=== PATIENT | male | born 1960 | race African-American/Black ===

== ENCOUNTER 2018-07-03 15:32 | Inpatient (IN) | payer MEDICAID, OTHER ==
[~2018-07-03] VITALS: Ht 175.3 cm; Wt 101.2 kg
[2018-07-03 17:26] LABS: Basophils # (auto) 0 uL; Basophils % (auto) 0.2 % (0.0-2.0); Eosinophils # (auto) 0 uL; Hematocrit 49.4 % (41.0-53.0); Hemoglobin 16.8 g/dL (13.5-17.5); Lymphocytes # (auto) 1.2 uL; Lymphocytes % (auto) 9.7 % (10.0-50.0); Mean Corpuscular Hemoglobin 29.5 pg (28.0-32.0); Mean Corpuscular Volume 86.7 fL (80.0-100.0); Monocytes # (auto) 0.8 uL; Monocytes % (auto) 6.3 % (0.0-12.0); Neutrophils # (auto) 10.4 uL; Neutrophils % (auto) 83.8 % (37.0-80.0); Nucleated Red Blood Cells % 0.1 %; Platelet Count (auto) 250 10^3/uL (140-450); Red Cell Distribution Width 15.9 % (11.8-14.3); White Blood Cell 12.4 10^3/uL (4.4-10.8)
[2018-07-03 17:36] LABS: Albumin 4.2 g/dL (3.4-5.0); BUN/Creatinine Ratio 9.4; Calcium 9.2 mg/dL (8.5-10.1); Potassium 3.8 mmol/L (3.5-5.1)
[2018-07-03 17:38] LABS: Bilirubin, Total 0.7 mg/dL (0.2-1.0); Total Protein 8.7 g/dL (6.4-8.2)
[2018-07-03] MEDS ORDERED: PANTOPRAZOLE 40 MG/10 ML VIAL IV STA (18:08)
[2018-07-03] MEDS ORDERED: SODIUM CHLORIDE 0.9% 500 ML IVB ONE (18:08)
[2018-07-03] MEDS ORDERED: PROCHLORPERAZINE EDISYLATE 5 MG/ML 2ML VIAL IV ONE (18:15)
[2018-07-03] MEDS ORDERED: MORPHINE SULFATE 4 MG/ML SYR/VIAL IV ONE (18:15)
[2018-07-03] MEDS ORDERED: SODIUM CHLORIDE 0.9% 1,000 ML IV ONE (21:00)
[2018-07-04] MEDS ORDERED: SODIUM CHLORIDE 0.9% 1,000 ML IV SCH (00:15)
[2018-07-04] MEDS ORDERED: ACETAMINOPHEN 500 MG TAB PO PRN (00:15)
[2018-07-04] MEDS ORDERED: metroNIDAZOLE 500MG/100ML 100 ML IV ONE (00:30)
[2018-07-04] MEDS ORDERED: cefTRIAXone 1GM/10ml IVPUSH 10 ML IV ONE (00:30)
[2018-07-04] MEDS: ONDANSETRON HCL 4 MG/2 ML VIAL IV PRN ×2 (01:00→20:24)
[2018-07-04] MEDS: MORPHINE SULFATE 4 MG/ML SYR/VIAL IV PRN ×3 (01:00→20:42)
[2018-07-04 01:35] VITALS: BP 134/84
[2018-07-04 02:00] VITALS: BP 132/78
[2018-07-04 05:00] VITALS: BP 129/87
[2018-07-04] MEDS: metroNIDAZOLE 500MG/100ML 100 ML IV SCH ×3 (05:50→20:24)
[2018-07-04 06:21] LABS: Basophils # (auto) 0 uL; Basophils % (auto) 0.3 % (0.0-2.0); Eosinophils # (auto) 0 uL; Hematocrit 41.8 % (41.0-53.0); Hemoglobin 13.9 g/dL (13.5-17.5); Lymphocytes # (auto) 0.9 uL; Lymphocytes % (auto) 10.6 % (10.0-50.0); Mean Corpuscular Hemoglobin 29.3 pg (28.0-32.0); Mean Corpuscular Hgb Conc. 33.3 g/dL (32.0-36.0); Monocytes # (auto) 0.8 uL; Monocytes % (auto) 10.1 % (0.0-12.0); Neutrophils # (auto) 6.5 uL; Nucleated Red Blood Cells % 0.1 %; Platelet Count (auto) 174 10^3/uL (140-450); Red Blood Cells 4.74 10^6/uL (4.5-5.90); White Blood Cell 8.2 10^3/uL (4.4-10.8)
[2018-07-04 06:35] LABS: INR 0.97 (0.9-1.15); Partial Thromboplastin Time 24.6 sec (23.78-33.04); Prothrombin Time 10.4 sec (9.27-12.13)
[2018-07-04 06:42] LABS: BUN/Creatinine Ratio 13.2; Calcium 7.8 mg/dL (8.5-10.1); Potassium 3.9 mmol/L (3.5-5.1)
[2018-07-04 09:00] VITALS: BP 111/78
[2018-07-04] MEDS ORDERED: GASTROGRAFIN 120 ML SOL ONE (09:44)
[2018-07-04] MEDS: BENAZEPRIL HCL 10 MG TAB PO SCH ×2 (10:00→20:24)
[2018-07-04] MEDS: SOD CHL 0.45% WITH 20MEQ KCL 1,000 ML IV SCH ×2 (14:00→19:28)
[2018-07-04 17:00] VITALS: BP 118/82
[2018-07-04 22:00] VITALS: BP 123/76
[2018-07-05 05:00] VITALS: BP 105/73
[2018-07-05] MEDS: metroNIDAZOLE 500MG/100ML 100 ML IV SCH ×3 (05:42→21:51)
[2018-07-05 05:47] LABS: Urine Bacteria NONE SEEN /hpf (None Seen); Urine Blood Negative /uL (Negative); Urine Mucus FEW (None Seen); Urine Specific Gravity 1.038 (1.001-1.035); Urine WBC 2 /hpf (0 - 3)
[2018-07-05 06:07] LABS: Calcium 7.7 mg/dL (8.5-10.1); Potassium 3.5 mmol/L (3.5-5.1)
[2018-07-05 06:09] LABS: BUN/Creatinine Ratio 9.7
[2018-07-05 06:30] LABS: Amphetamine Screen, Urine NEGATIVE (NEGATIVE); Barbiturate Scree,Urine NEGATIVE (NEGATIVE); Benzodiazephine Screen, Urine NEGATIVE (NEGATIVE); Cannabinoid Screen, Urine POSITIVE (NEGATIVE); Cocaine Screen, Urine NEGATIVE (NEGATIVE); Opiate Scree,Urine POSITIVE (NEGATIVE); Phencyclidine Screen, Urine NEGATIVE (NEGATIVE)
[2018-07-05 08:45] VITALS: BP 106/73
[2018-07-05] MEDS: BENAZEPRIL HCL 10 MG TAB PO SCH ×2 (09:35→21:53)
[2018-07-05] MEDS: cefTRIAXone 1GM/10ml IVPUSH 10 ML IV SCH (09:35)
[2018-07-05] MEDS: HYDROcodone-ACET 5/325MG TAB PO PRN (09:35)
[2018-07-05 12:08] VITALS: BP 127/89
[2018-07-05 17:12] VITALS: BP 125/90
[2018-07-05] MEDS: SOD CHL 0.45% WITH 20MEQ KCL 1,000 ML IV SCH (18:17)
[2018-07-05 22:00] VITALS: BP 121/82
[2018-07-05] MEDS: ONDANSETRON HCL 4 MG/2 ML VIAL IV PRN (22:01)
[2018-07-05] MEDS: MORPHINE SULFATE 4 MG/ML SYR/VIAL IV PRN (22:02)
[2018-07-06 05:00] VITALS: BP 103/70
[2018-07-06] MEDS: metroNIDAZOLE 500MG/100ML 100 ML IV SCH ×3 (05:07→21:18)
[2018-07-06] MEDS: SOD CHL 0.45% WITH 20MEQ KCL 1,000 ML IV SCH ×2 (05:24→14:11)
[2018-07-06 08:43] VITALS: BP 106/70
[2018-07-06] MEDS: cefTRIAXone 1GM/10ml IVPUSH 10 ML IV SCH (11:17)
[2018-07-06] MEDS: BENAZEPRIL HCL 10 MG TAB PO SCH ×2 (11:18→21:32)
[2018-07-06 12:10] VITALS: BP 115/80
[2018-07-06 16:54] VITALS: BP 104/67
[2018-07-06] MEDS: HYDROcodone-ACET 5/325MG TAB PO PRN (21:34)
[2018-07-06 22:00] VITALS: BP 108/71
[2018-07-07 05:00] VITALS: BP 109/73
[2018-07-07] MEDS: metroNIDAZOLE 500MG/100ML 100 ML IV SCH (05:31)
[2018-07-07] MEDS: SOD CHL 0.45% WITH 20MEQ KCL 1,000 ML IV SCH (06:10)
[2018-07-07 09:00] VITALS: BP 117/82
[2018-07-07] MEDS: cefTRIAXone 1GM/10ml IVPUSH 10 ML IV SCH (09:28)
[2018-07-07] MEDS: BENAZEPRIL HCL 10 MG TAB PO SCH (09:28)
== END 2018-07-07 11:15 | disposition left against medical advice (07) | DRG 247 ==
LOC: ER 15:32 → OVERFLOW 15:33 → CENTRAL 07-04 01:30
PROVIDERS: ADMIT Nurse Practitioner Family; ATTEND Internal Medicine Pulmonary Disease
DX: K56.600 Partial intestinal obstruction, unspecified as to cause (principal); R65.11 Systemic inflammatory response syndrome (SIRS) of non-infectious origin with acute organ dysfunction; K76.0 Fatty (change of) liver, not elsewhere classified; E83.51 Hypocalcemia; E78.5 Hyperlipidemia, unspecified; F12.90 Cannabis use, unspecified, uncomplicated; F17.210 Nicotine dependence, cigarettes, uncomplicated; I10 Essential (primary) hypertension; K76.89 Other specified diseases of liver; R73.9 Hyperglycemia, unspecified; K42.9 Umbilical hernia without obstruction or gangrene
CPT/HCPCS: 36415; 74018; 74176; 74250; 80048; 80053; 80307; 80320; 81001; 82150; 83690; 85025; 85610; 85730; 87040; 93005; 94761; 96374; 96375; C9113; J0696; J2405; J3490

== ENCOUNTER 2018-07-30 20:49 | Emergency (ER) | payer MEDICAID ==
[~2018-07-30] VITALS: Ht 177.8 cm; Wt 97.5 kg
[2018-07-31] MEDS ORDERED: ACETAMINOPHEN/CODEINE#3 (300/30mg) TAB PO ONE
[2018-07-31 00:36] VITALS: BP 126/95
== END 2018-07-31 00:41 | disposition home or self-care (01) ==
LOC: EDUNIT# 20:49 → ER 20:49 → EDBD 20:49 → ER 07-31 00:41
DX: J42 Unspecified chronic bronchitis (principal); E78.5 Hyperlipidemia, unspecified; I10 Essential (primary) hypertension; F17.210 Nicotine dependence, cigarettes, uncomplicated; F12.90 Cannabis use, unspecified, uncomplicated
CPT/HCPCS: 70450; 71046; 94761